=== PATIENT | female | born 1990 | race African-American/Black ===

== ENCOUNTER → 2018-05-22 | Outpatient (CLI) | payer OTHER ==
--- NOTE | 2018-05-22 18:41 | US ---
EXAMINATION TYPE: US thyroid st tissue head/neck DATE OF EXAM: 05/22/2018 COMPARISON: NONE CLINICAL HISTORY: 27-year-old female E04.9 ENLARGED THYROID. TECHNIQUE: Multiple sonographic images of the thyroid gland are obtained. FINDINGS: GLAND SIZE: Right Lobe: 4.8 x 1.8 x 2.0 cm Overall Parenchyma: mildly heterogeneous Left Lobe: 5.9 x 1.8 x 2.0 cm Overall Parenchyma: mildly heterogeneous Isthmus Thickness: 0.6 cm No nodules seen. Enlarged, lobular borders. No hyperemia. Bilateral neck scanned, no evidence of lymphadenopathy. IMPRESSION: Borderline to mild thyromegaly. There is mildly heterogeneous glandular parenchyma. No discrete nodul es. Consider goiter.
== END | disposition home or self-care (01) ==
LOC: RADUSWWP 15:35
PROVIDERS: ATTEND Obstetrics & Gynecology
DX: E01.0 Iodine-deficiency related diffuse (endemic) goiter (principal)
CPT/HCPCS: 76536

== ENCOUNTER 2018-11-14 08:58 | Outpatient (CLI) | payer OTHER ==
[2018-11-14 09:51] VITALS: RESP 18; TEMP 98.6
[2018-11-14 10:23] VITALS: PULSE 100
[2018-11-14 10:43] VITALS: BP 132/72
--- NOTE | 2018-12-04 09:19 | P.MSEPDOC ---
Presenting Problems - Arrival Data Date of Arrival on Unit: 11/14/18 Time of Arrival on Unit: 08:55 Mode of Transport: Ambulatory - Complaint OB-Reason for Admission/Chief Complaint: Possible Onset of Labor, Rule Out SROM Comment: states irreg contx for last several days and questionable leaking fluid this am. Medical History - Information : 3 Para: 1 Term: 1 : 0 Abortions: Spontaneous or Elective: 1 Number of Living Children: 1 - Gestational Age Gestational Age by MELINA (wks/days): 36 Weeks and 0 Days Review of Systems - Review of Systems Constitutional: No problems Breast: No problems ENT: No problems Cardiovascular: No problems Respiratory: No problems Gastrointestinal: No problems Genitourinary: No problems Musculoskeletal: No problems Neurological: No problems Skin: No problems Vital Signs - Temperature Temperature: 98.6 F Temperature Source: Oral - Pulse Right Brachial Pulse Rate: 100 Pulse Assessment Method: Auscultation - Respirations Respiratory Rate: 18 Oxygen Delivery Method: Room Air - Blood Pressure Right Arm Blood Pressure: 132/72 Blood Pressure Mean: 92 Blood Pressure Source: Automatic Cuff Medical Screen Scoring (Pre) - Cervical Exam Dilation: 1-3 cm = 1 Effacement: Exam Deferred Membranes: Intact - Uterine Contractions Frequency: N/A Duration: N/A Intensity: N/A - Maternal Vital Signs Maternal Temperature: N/A Maternal Blood Pressure: N/A Signs of Preeclampsia: N/A Maternal Respirations: N/A - Pain Assessment Pain Scale Used: Numeric (1 - 10) Pain Intensity: 0 - Maternal Trauma Maternal Trauma: N/A - Assessment Baseline FHR: 130 Heart Rate - NICHD Category: Category I (Normal) = 0 NST: Reactive Position: N/A Station: N/A - Total Score Total Score (Pre): 1 - Level of Risk Level of Risk: Low (0-5) Physician Notification (Pre) - Physician Notified Physician Notified Date: 11/14/18 Physician Notified Time: 10:05 Physician/Practitioner Notifed:: vincent Spoke With: vincent New Order Received: Yes - Notification Comment Comment: ok for discharge Disposition - Disposition OB Disposition: Physician follow up in office, Discharge to home Discharge Date: 11/14/18 Discharge Time: 10:23 I agree with the RN Medical Screening Exam: Yes Risk & Benefit of care provided described in d/c instruction: Yes Diagnosis: FALSE LABOR BEFORE 37 COMPLETED WEEKS OF GEST, THIRD TRI
== END 2018-11-14 10:35 | disposition home or self-care (01) ==
LOC: FBPOP 08:58
PROVIDERS: ATTEND Obstetrics & Gynecology
DX: O47.03 False labor before 37 completed weeks of gestation, third trimester (principal); Z3A.36 36 weeks gestation of pregnancy
CPT/HCPCS: 59025; G0463; 99213

== ENCOUNTER 2018-12-02 21:45 | Inpatient (IN) | payer OTHER ==
[2018-12-02] MEDS ORDERED: PENICILLIN G POTASSIUM 5,000,000 UNIT in DEXTROSE 5% IN WATER 100 ML IVPB STA ×2 (22:11)
[2018-12-02] MEDS ORDERED: LIDOCAINE 0.5% (PF) 5 MG/ML (50 ML SDV) SQ PRN (22:11)
[2018-12-02] MEDS ORDERED: METHYLERGONOVINE 0.2 MG/ML 1 ML AMP IM PRN (22:11)
[2018-12-02] MEDS ORDERED: CARBOPROST TROMETHAMINE 250 MCG/ML 1 ML AMP IM PRN (22:11)
[2018-12-02] MEDS ORDERED: OXYTOCIN 10 UNIT/ML 1 ML VIAL IM PRN (22:11)
[2018-12-02] MEDS ORDERED: TERBUTALINE 1 MG/ML VIAL SQ PRN (22:11)
[2018-12-02 22:29] VITALS: BMI 39.4
[2018-12-02] MEDS ORDERED: SODIUM CHLORIDE 0.9% 100 ML BAG ONE (22:31)
[2018-12-02] MEDS ORDERED: fentaNYL (PF) 50 MCG/ML 5 ML AMP ONE (22:31)
[2018-12-02] MEDS ORDERED: ROPIVACAINE 5MG/ML 20ML VIAL ONE (22:31)
[2018-12-02] MEDS: LACTATED RINGERS 1,000 ML IV SCH ×2 (22:45→23:11)
[2018-12-02 22:49] LABS: Basophils % (A) 0 %; Eosinophils # (A) 0.1 k/uL (0-0.7); Eosinophils % (A) 1 %; HCT 44.5 % (34.0-46.0); HGB 14.8 gm/dL (11.4-16.0); Lymphocytes # (A) 1.5 k/uL (1.0-4.8); Lymphocytes % (A) 13 %; MCH 29.3 pg (25.0-35.0); MCHC 33.2 g/dL (31.0-37.0); MCV 88.2 fL (80.0-100.0); Monocytes # (A) 0.9 k/uL (0-1.0); Monocytes % (A) 7 %; Neutrophils # (A) 9.2 k/uL (1.3-7.7); Neutrophils % (A) 77 %; Platelet Count 249 k/uL (150-450); RBC 5.04 m/uL (3.80-5.40); RDW 15.5 % (11.5-15.5); WBC 11.9 k/uL (3.8-10.6)
--- NOTE | 2018-12-03 00:42 | P.HPOB ---
History of Present Illness H&P Date: 12/03/18 Chief Complaint: 38-5/7 weeks, spontaneous rupture membranes, labor The patient is a 28-year-old 5 para 1031 admitted at 38-5/7 weeks as established by last menstrual period and confirmed by 19 week ultrasound. She is admitted for management of active labor with the documented spontaneous rupture of membranes for clear fluid. Her has been uncomplicated though she was found with the potentially macrosomic infant with growth at greater than 97th percentile in the third trimester. On labor and delivery, all signs reassuring though the heart tones at this time are category 2 with minimal short and long-term variability though there is response to scalp stimulation. There are no apparent decelerations at this time. Group B strep status is negative. Obstetrical history: 5 para 1031 with 1 previous normal vaginal delivery and 2 early interruptions of as well as a miscarriage not requiring D&C. Current statistics are listed in history of present illness. EDC of 12/12/2018 was established by last menstrual period and confirmed by second trimester ultrasound. Laboratory workup demonstrates a blood type of O+ with a negative antibody screen. Rubella status is immune. The remainder the laboratory workup was within normal limits. Early Glucola was normal, second trimester Glucola was elevated but followed by a normal three-hour glucose tolerance test. Group B strep status is negative. Gynecologic history: Unremarkable no history of any infections to include STDs. Review of Systems Review of systems is confined to history of present illness. Past Medical History Past Medical History: No Reported History History of Any Multi-Drug Resistant Organisms: None Reported Additional Past Surgical History / Comment(s): X2, Smoking Status: Never smoker - Past Family History Mother Family Medical History: No Reported History Medications and Allergies Home Medications Medication Instructions Recorded Confirmed Type Pnv,Calcium 72/Iron/Folic Acid 1 each PO DAILY 11/14/18 12/02/18 History [ Plus Tablet] Allergies Allergy/AdvReac Type Severity Reaction Status Date / Time No Known Allergies Allergy Verified 12/02/18 22:10 Exam Vital Signs Temp Pulse Resp BP 12/02/18 22:23 97.1 F L 99 20 144/80 Intake and Output 12/02/18 12/02/18 12/03/18 14:59 22:59 06:59 Intake Total 1000 Balance 1000 Intake: Intake, IV Titration 1000 Amount Lactated Ringers 1,000 ml 1000 @ 125 mls/hr IV .Q8H [facility] Rx#:[id number] Other: Weight 114.305 kg In general, this is a well-developed, moderately obese female in no acute distress. Her heart has a regular rhythm and rate without murmur. Her lungs are clear to auscultation bilaterally in all simpson. Her abdomen is obese, nondistended, has normal active bowel sounds, is soft, nontender, and without any palpable masses aside from uterine fundus. Her extremities are without any cyanosis, clubbing, or edema and are nontender to palpation bilaterally. Digital cervical examination demonstrates her cervix to be approximately 8 cm dilated, 90% effaced, with the vertex in presentation at -2 station. There is a moderate amount of caput present. Results Result Diagrams: 12/02/18 22:14 Abnormal Lab Results - Last 24 Hours (Table) 12/02/18 Range/Units 22:14 WBC 11.9 H (3.8-10.6) k/uL Neutrophils # 9.2 H (1.3-7.7) k/uL Assessment and Plan (1) Active labor at term Current Visit: Yes Status: Acute Code(s): HDW0635 - SNOMED Code(s): 39994877 (2) Spontaneous rupture of membranes Current Visit: Yes Status: Acute Code(s): RFN4728 - SNOMED Code(s): 330445322 (3) Large for gestational age fetus Current Visit: Yes Status: Acute Code(s): HMU2996 - SNOMED Code(s): 962637600 Plan: The patient is admitted for active management of labor. She will continue to have close maternal and surveillance and expectant management will be practiced. An epidural catheter is in place for analgesia. Should there be no significant cervical change or the heart rate pattern justify it, she may proceed to primary low transverse section.
[2018-12-03] MEDS ORDERED: HYDROcodone/APAP 5-325MG 1 EACH TAB PO PRN (01:22)
[2018-12-03] MEDS ORDERED: WITCH HAZEL 1 EACH MED..PAD TOPICAL PRN (01:22)
[2018-12-03] MEDS ORDERED: ACETAMINOPHEN TAB 325 MG TAB PO PRN (01:22)
[2018-12-03] MEDS ORDERED: diphenhydrAMINE 50 MG/ML 1 ML VIAL IVP PRN ×2 (01:22)
[2018-12-03] MEDS ORDERED: BENZOCAINE/MENTHOL SPRAY 1 GM/SPRAY AEROSOL TOPICAL PRN (01:22)
[2018-12-03] MEDS ORDERED: SIMETHICONE 80 MG CHEWABLE PO PRN (01:22)
[2018-12-03] MEDS ORDERED: diphenhydrAMINE 25 MG CAP PO PRN (01:22)
[2018-12-03] MEDS ORDERED: LANOLIN CREAM 5 GM TUBE TOPICAL PRN (01:22)
[2018-12-03] MEDS ORDERED: ZOLPIDEM 5 MG TAB PO PRN (01:22)
[2018-12-03] MEDS ORDERED: diphenhydrAMINE 50 MG CAP PO PRN (01:22)
[2018-12-03] MEDS ORDERED: HYDROCORTISONE 2.5% RECTAL CREAM 30 GM TUBE RECTAL PRN (01:22)
[2018-12-03] MEDS ORDERED: HYDROcodone/APAP 7.5-325MG 1 EACH TAB PO PRN (01:22)
--- NOTE | 2018-12-03 01:27 | P.PROBDLV ---
Vaginal Delivery Note - . Vaginal Delivery Note: The patient is a 28-year-old 5 para 1031 admitted at 38-5/7 weeks by good dating parameters. She is admitted with documented spontaneous rupture of membranes in early active labor with all signs reassuring. Her has been uncomplicated and group B strep status is negative. On labor and delivery, she had an epidural catheter placed for analgesia at the onset of the active phase of labor and made steady progress to the active phase. Heart tones were category 2 for the majority of the active phase of labor but no nonreassuring signs were noted. As she was making rapid progress, she was managed expectantly. She ultimately progressed fairly quickly from approximate 6 cm to complete and then pushed over the course of approximate 2-3 contractions to a normal spontaneous vaginal delivery of a viable 9 lbs. 0 oz. baby boy with Apgars of 9 at 1 minute and 9 at 5 minutes delivered in the occiput anterior position. The placenta was delivered spontaneously, intact, and grossly normal with a grossly normal, centrally inserted three-vessel cord. There were no lacerations of the perineum, vagina, or cervix. She did have a small left vulvar skin tag approximately 3-4 mm in size which she had requested be excised at the time of delivery. It was infused with 1% lidocaine and removed with a scissors and sent for pathological diagnoses. There was no significant ongoing bleeding nor did it require a stitch to close. Estimated blood loss for the entire case was approximately 200 mL. There are no complications. All sponge, instrument, and needle counts were correct. Both mother and infant are resting comfortably in recovery.
[2018-12-03] MEDS ORDERED: OXYTOCIN 20 UNITS/1000 ML NS 1,000 ML IV SCH (01:30)
[2018-12-03] MEDS ORDERED: PENICILLIN G POTASSIUM 2,500,000 UNIT in DEXTROSE 5% IN WATER 100 ML IVPB SCH ×2 (02:12)
[2018-12-03] MEDS: IBUPROFEN 600 MG TAB PO PRN ×3 (04:01→21:59)
[2018-12-03] MEDS: SENNOSIDES-DOCUSATE SODIUM 1 EACH TAB PO SCH ×3 (08:01→22:00)
--- NOTE | 2018-12-03 11:06 | P.PNOBGVD ---
Subjective - Subjective Patient reports: Reports appetite normal, Reports voiding normally, Reports pain well controlled, Reports ambulating normally : doing well, nursing well Objective - Latest Vital Signs Latest vital signs: Vital Signs Temp Pulse Resp BP 12/03/18 08:00 98.1 F 101 H 18 126/80 12/03/18 03:15 97.2 F L 99 16 110/51 12/03/18 02:45 101 H 16 117/78 12/03/18 02:15 87 16 112/55 12/03/18 02:00 91 16 111/66 12/03/18 01:45 100 16 105/55 12/03/18 01:30 100 16 120/56 12/03/18 01:15 97.5 F L 99 16 116/56 12/02/18 22:23 97.1 F L 99 20 144/80 Intake and Output 12/02/18 12/03/18 12/03/18 22:59 06:59 14:59 Intake Total 1000 Balance 1000 Intake: Intake, IV Titration 1000 Amount Lactated Ringers 1,000 ml 1000 @ 125 mls/hr IV .Q8H [facility] Rx#:[id number] Other: # Voids 1 1 Weight 114.305 kg - Exam Extremities: Present: normal Abdomen: Present: normal appearance, soft Uterus: Present: normal, firm (The uterine fundus is tonic and nontender around the umbilicus.) - Labs Labs: Abnormal Lab Results - Last 24 Hours (Table) 12/02/18 Range/Units 22:14 WBC 11.9 H (3.8-10.6) k/uL Neutrophils # 9.2 H (1.3-7.7) k/uL Assessment and Plan (1) Active labor at term Current Visit: Yes Status: Acute Code(s): [id number] - SNOMED Code(s): 54584274 (2) Spontaneous rupture of membranes Current Visit: Yes Status: Acute Code(s): PPC2718 - SNOMED Code(s): 950145478 (3) Large for gestational age fetus Current Visit: Yes Status: Acute Code(s): VBO7323 - SNOMED Code(s): 728140329 (4) Normal spontaneous vaginal delivery Current Visit: Yes Status: Acute Code(s): O80 - ENCOUNTER FOR FULL-TERM UNCOMPLICATED DELIVERY SNOMED Code(s): 11575068 Plan: Continue routine care. Anticipate discharge home tomorrow pending no complications.
[2018-12-04 01:16] VITALS: RESP 16
[2018-12-04] MEDS: SENNOSIDES-DOCUSATE SODIUM 1 EACH TAB PO SCH ×2 (07:41→20:26)
--- NOTE | 2018-12-04 08:57 | P.DS ---
Providers Date of admission: 12/02/18 21:55 Expected date of discharge: 12/04/18 Attending physician: Josy Welch Primary care physician: Josy Welch [facility] Course: This is a 28-year-old black female 5 para 1031 EDC 12/12/2018 at 38-4/7 weeks' gestation. Patient presented to labor and delivery with a history of spontaneous amniorrhexis, clear fluid. Regular uterine contractions were noted to follow. Fetus is been active throughout the . course was unremarkable, blood type O positive, rubella status immune. Please see dictated history and physical for details. Patient progressed well and delivered a liveborn male infant with scores of 9 and 9 at one and 5 minutes respectively. There were no vaginal lacerations or defects. Estimated blood loss 200 mL's. weighed 4090 g or 9 lbs. 0 oz. Please see dictated delivery note for details. This morning the patient is doing well. She is voiding, ambulating, passing flatus without difficulty. Vital signs are stable and she is afebrile. Circumcision has been performed. Breast-feeding is going well. Patient is judged to be in very good condition for discharge home. There is minimal lochia rubra, the fundus is firm and in the midline, symmetric and 18 week size. Extremities are negative for edema. Chest is clear in all simpson. Patient is being discharged home at this time in very good condition. She will follow-up in the office with me in 6 weeks. I reminded her no intercourse, tampons or douching. We have briefly discussed options for contraception and we will discuss this further in the office. She will call with any fevers shakes or chills, foul smelling or copious lochia, with the passage of large blood clots, with any pain not alleviated by [id number] Motrin products, or indeed with any difficulties or concerns. Patient Condition at Discharge: Good Plan - Discharge Summary Discharge Rx Participant: No New Discharge Prescriptions: No Action Pnv,Calcium 72/Iron/Folic Acid [ Plus Tablet] 1 each PO DAILY Discharge Medication List Pnv,Calcium 72/Iron/Folic Acid [ Plus Tablet] 1 each PO DAILY 11/14/18 [History] Follow up Appointment(s)/Referral(s): Josy Welch MD [Primary Care Provider] - 6 Weeks Discharge Disposition: HOME SELF-CARE
[2018-12-04] MEDS: IBUPROFEN 600 MG TAB PO PRN (16:21)
[2018-12-05 08:56] VITALS: BP 140/88; PULSE 102; TEMP 98.4
[2018-12-05] MEDS: SENNOSIDES-DOCUSATE SODIUM 1 EACH TAB PO SCH (10:35)
== END 2018-12-05 10:37 | disposition home or self-care (01) | DRG 807 ==
LOC: FBPOP 21:45 → 4FBP 21:55
PROVIDERS: ADMIT Obstetrics & Gynecology; ATTEND Obstetrics & Gynecology
PROC: 00HU33Z Insertion of Infusion Device into Spinal Canal, Percutaneous Approach (ICD-10-PCS; 2018-12-02)
PROC: 3E0R3BZ Introduction of Anesthetic Agent into Spinal Canal, Percutaneous Approach (ICD-10-PCS; 2018-12-02)
PROC: 10E0XZZ Delivery of Products of Conception, External Approach (ICD-10-PCS; principal; 2018-12-03)
PROC: 0HB9XZZ Excision of Perineum Skin, External Approach (ICD-10-PCS; 2018-12-03)
DX: O36.63X0 Maternal care for excessive fetal growth, third trimester, not applicable or unspecified (principal); Z37.0 Single live birth; N90.89 Other specified noninflammatory disorders of vulva and perineum; Z3A.38 38 weeks gestation of pregnancy; O99.214 Obesity complicating childbirth; E66.9 Obesity, unspecified; Z79.899 Other long term (current) drug therapy
CPT/HCPCS: 84112; 85025; 86850; 86900; 86901; 88305; 99213

== ENCOUNTER 2020-11-12 05:22 | Emergency (ER) | payer OTHER ==
--- NOTE | 2020-11-12 05:43 | ED ---
SOB HPI - General Chief Complaint: Shortness of Breath Stated Complaint: SOB, cough Source: patient, RN notes reviewed, old records reviewed Mode of arrival: ambulatory Limitations: no limitations - History of Present Illness Initial Comments: This is a 30-year-old female DF for evaluation presented today for evaluation of coronavirus exposure which is asymptomatic. Patient concern for possible spreading of disease, patient presents today for being exposed to coronavirus. She does have a little bit of a cough and chest pain. Otherwise no complaints. Patient does suffer from diabetes MD Complaint: shortness of breath, cough -: minutes(s) Severity: mild Severity scale (1-10): 3 Quality: dull Consistency: constant Improves With: nothing Worsens With: nothing Known History Of: COPD Context: recent URI, recent illness, other (Exposure to covid) Associated Symptoms: fever, cough Treatments Prior to Arrival: none - Related Data Home Medications Medication Instructions Recorded Confirmed metFORMIN HCL 500 mg PO BID 11/12/20 11/12/20 Allergies Allergy/AdvReac Type Severity Reaction Status Date / Time No Known Allergies Allergy Verified 11/12/20 05:28 Review of Systems ROS Statement: Those systems with pertinent positive or pertinent negative responses have been documented in the HPI. ROS Other: All systems not noted in ROS Statement are negative. Past Medical History Past Medical History: Diabetes Mellitus History of Any Multi-Drug Resistant Organisms: None Reported Additional Past Surgical History / Comment(s): X2, Past Psychological History: No Psychological Hx Reported Smoking Status: Never smoker Past Alcohol Use History: None Reported Past Drug Use History: Marijuana - Past Family History Mother Family Medical History: No Reported History General Exam Limitations: no limitations General appearance: alert, in no apparent distress Head exam: Present: atraumatic, normocephalic, normal inspection Eye exam: Present: normal appearance, PERRL, EOMI. Absent: scleral icterus, conjunctival injection, periorbital swelling ENT exam: Present: normal exam, mucous membranes moist Neck exam: Present: normal inspection. Absent: tenderness, meningismus, lymphadenopathy Respiratory exam: Present: normal lung sounds bilaterally. Absent: respiratory distress, wheezes, rales, rhonchi, stridor Cardiovascular Exam: Present: regular rate, normal rhythm, normal heart sounds. Absent: systolic murmur, diastolic murmur, rubs, gallop, clicks GI/Abdominal exam: Present: soft, normal bowel sounds. Absent: distended, tenderness, guarding, rebound, rigid Extremities exam: Present: normal inspection, full ROM, normal capillary refill. Absent: tenderness, pedal edema, joint swelling, calf tenderness Back exam: Present: normal inspection Neurological exam: Present: alert, oriented X3, CN II-XII intact Psychiatric exam: Present: normal affect, normal mood Skin exam: Present: warm, dry, intact, normal color. Absent: rash Course Vital Signs 11/12/20 11/12/20 11/12/20 05:25 05:54 06:52 Temperature 98.2 F 101.0 F H 99.1 F Pulse Rate 119 H 114 H 94 Respiratory 20 20 16 Rate Blood Pressure 109/71 102/65 O2 Sat by Pulse 97 97 97 Oximetry - Reevaluation(s) Reevaluation #1: 11/12/20 07:04 Medical record is reviewed Reevaluation #2: 11/12/20 07:04 Patient requesting information regarding possibility of infusion patient form she does meet qualification, she is agreeable Reevaluation #3: 11/12/20 07:05 Patient will be given bam. and then discharged Medical Decision Making - Medical Decision Making 30 female known coronavirus exposure boyfriend who feels with, patient does again herself have coronavirus given BAM here in the ER, a symptomatically throughout stay, discharged - Lab Data Lab Results 11/12/20 Range/Units 05:54 Coronavirus (PCR) Detected A (Not Detectd) - Radiology Data Radiology results: report reviewed (Chest x-rays negative for acute disease), image reviewed Disposition Clinical Impression: Coronavirus infection Disposition: HOME SELF-CARE Condition: Good Instructions (If sedation given, give patient instructions): Coronavirus Disease 2019 (COVID-19) Referrals: Ivan Villagran DO [Primary Care Provider] - 1-2 days
[2020-11-12] MEDS ORDERED: ACETAMINOPHEN TAB 325 MG TAB PO STA ×2 (05:55→11:00)
--- NOTE | 2020-11-12 07:03 | XR ---
EXAM: XR Chest, 1 View CLINICAL HISTORY: Reason: cough TECHNIQUE: Frontal view of the chest. COMPARISON: 09/26/15 FINDINGS: Lungs: Lung volumes are within normal limits. No evidence of airspace consolidation. No pulmonary edema. Pleural space: Unremarkable. No pneumothorax. Heart: Unremarkable. No cardiomegaly. Mediastinum: Unremarkable. No mediastinal widening or shift. Bones/joints: No acute osseous abnormality. IMPRESSION: No evidence of acute cardiopulmonary abnormality.
[2020-11-12] MEDS ORDERED: BAMLANIVIMAB (EUA) 700 MG, ETESEVIMAB (EUA) 1,400 MG in SODIUM CHLORIDE 0.9% 50 ML IVPB ONE (08:00)
[2020-11-12 09:11] VITALS: RESP 18
[2020-11-12 10:57] VITALS: BP 115/71; PULSE 101; TEMP 101
== END 2020-11-12 11:00 | disposition home or self-care (01) ==
LOC: EC 05:22
DX: U07.1 COVID-19 (principal); J44.9 Chronic obstructive pulmonary disease, unspecified; E11.9 Type 2 diabetes mellitus without complications; F12.90 Cannabis use, unspecified, uncomplicated
CPT/HCPCS: 87635; 71045; 99285; 96365; Q0245

== ENCOUNTER 2021-04-06 22:17 | Emergency (ER) | payer OTHER ==
[2021-04-06 22:29] VITALS: RESP 18; TEMP 98.3
[2021-04-07] MEDS ORDERED: SODIUM CHLORIDE 0.9% 500 ML 500 ML IV ONE (00:04)
[2021-04-07] MEDS ORDERED: KETOROLAC 15 MG/ML 1 ML VIAL IVP STA (00:04)
[2021-04-07] MEDS ORDERED: diphenhydrAMINE 50 MG/ML 1 ML VIAL IVP STA (00:04)
--- NOTE | 2021-04-07 00:55 | CT ---
EXAMINATION TYPE: CT brain wo con DATE OF EXAM: 04/07/2021 COMPARISON: None HISTORY: RIGHT SIDED HEADACHE. CT DLP: 1096.4 mGycm Automated exposure control for dose reduction was used. Ventricles and sulci appear normal. There is no mass effect nor midline shift. There is no sign of in tracranial hemorrhage. The calvarium is intact. There is normal aeration of the mastoid sinuses. IMPRESSION: Negative CT scan of the brain.
--- NOTE | 2021-04-07 01:23 | ED ---
Headache HPI - General Chief Complaint: Headache Stated Complaint: migraine Time Seen by Provider: 04/06/21 23:56 Source: RN notes reviewed Mode of arrival: ambulatory Limitations: no limitations - History of Present Illness Initial Comments: This a 30-year-old female presents emergency Department chief complaint of headache. Patient states she's had a headache for over 3 days. Patient states primarily right sided sometimes it does wax and wane but never completely resolves. Patient denies any fevers chills neck pain or neck stiffness. Patient states that she's never had a headache with this was not a sudden onset of headache either. Patient denies any sick contacts no visual disturbances no focal weakness. - Related Data Home Medications Medication Instructions Recorded Confirmed metFORMIN HCL 500 mg PO BID 11/12/20 11/12/20 Allergies Allergy/AdvReac Type Severity Reaction Status Date / Time No Known Allergies Allergy Verified 04/06/21 22:26 Review of Systems ROS Statement: Those systems with pertinent positive or pertinent negative responses have been documented in the HPI. ROS Other: All systems not noted in ROS Statement are negative. Past Medical History Past Medical History: Diabetes Mellitus History of Any Multi-Drug Resistant Organisms: None Reported Additional Past Surgical History / Comment(s): X2, Past Psychological History: No Psychological Hx Reported Smoking Status: Never smoker Past Alcohol Use History: None Reported Past Drug Use History: Marijuana - Past Family History Mother Family Medical History: No Reported History General Exam Limitations: no limitations General appearance: alert, in no apparent distress Head exam: Present: atraumatic, normocephalic, normal inspection Eye exam: Present: normal appearance, PERRL, EOMI. Absent: scleral icterus, conjunctival injection, periorbital swelling ENT exam: Present: normal exam, normal oropharynx, mucous membranes moist, TM's normal bilaterally Neck exam: Present: normal inspection, full ROM. Absent: tenderness, meningismus, lymphadenopathy Respiratory exam: Present: normal lung sounds bilaterally. Absent: respiratory distress, wheezes, rales, rhonchi, stridor Cardiovascular Exam: Present: regular rate, normal rhythm, normal heart sounds. Absent: systolic murmur, diastolic murmur, rubs, gallop, clicks Neurological exam: Present: alert, oriented X3, CN II-XII intact, reflexes normal, other (Finger to nose intact bilaterally). Absent: motor sensory deficit Course Vital Signs 04/06/21 22:26 Temperature 98.3 F Pulse Rate 72 Respiratory 18 Rate Blood Pressure 115/73 O2 Sat by Pulse 98 Oximetry Medical Decision Making - Medical Decision Making CT was unremarkable. Patient's was cleaned time. Patient feels greatly improved after migraine cocktail. Patient feels comfortable discharged in stable condition. Disposition Clinical Impression: Migraine headache Disposition: HOME SELF-CARE Condition: Stable Instructions (If sedation given, give patient instructions): Acute Headache (ED) Additional Instructions: Please return to the Emergency Department if symptoms worsen or any other concerns. Is patient prescribed a controlled substance at d/c from ED?: No Referrals: Ivan Villagran DO [Primary Care Provider] - 1-2 days Time of Disposition: 01:23
[2021-04-07 01:48] VITALS: BP 124/68; PULSE 82
== END 2021-04-07 01:40 | disposition home or self-care (01) ==
LOC: EC 22:17
DX: G43.909 Migraine, unspecified, not intractable, without status migrainosus (principal); E11.9 Type 2 diabetes mellitus without complications; F12.90 Cannabis use, unspecified, uncomplicated; Z79.84 Long term (current) use of oral hypoglycemic drugs
CPT/HCPCS: 70450; 96374; 96375 ×2; 99284; J1200; J1885; J1790

== ENCOUNTER → 2021-07-24 | Outpatient (CLI) | payer OTHER ==
--- NOTE | 2021-07-24 16:19 | US ---
EXAMINATION TYPE: US thyroid st tissue head/neck DATE OF EXAM: 07/24/2021 COMPARISON: Thyroid ultrasound May 22, 2018 CLINICAL HISTORY: E04.9 Nontoxic goiter. f/u GLAND SIZE: Right Lobe: 5.1 x 1.7 x 2.0 cm Overall Parenchyma: heterogenous Left Lobe: 5.6 x 1.7 x 1.8 cm Overall Parenchyma: heterogeneous Isthmus Thickness: 0.6 cm NODULES RIGHT: # of nodules measured on right: 0 LEFT: # of nodules measured on left: 0 ISTHMUS: # of nodules measured in the isthmus: 0 Bilateral neck scanned, no evidence of lymphadenopathy. Heterogeneous thyroid gland measuring upper limits of normal in size without discrete nodules. No sig nificant change from prior. IMPRESSION: As above. No significant change from prior study.
== END | disposition home or self-care (01) ==
LOC: RADUSWWP 15:36
PROVIDERS: ATTEND Family Medicine
DX: E04.9 Nontoxic goiter, unspecified (principal)
CPT/HCPCS: 76536

== ENCOUNTER → 2022-10-25 | Outpatient (CLI) | payer OTHER ==
--- NOTE | 2022-10-25 14:04 | XR ---
EXAMINATION TYPE: XR knee 4V RT DATE OF EXAM: 10/25/2022 CLINICAL HISTORY: Pain. TECHNIQUE: Three views of the right knee are obtained, for sunrise view. COMPARISON: None. FINDINGS: There is no acute fracture/dislocation evident in right knee. Patellar articulation satisf actory on the sunrise view. Mild narrowing patellofemoral compartment. There is tiny osteophyte ante rior superior patella at the distal quadriceps tendon attachment. Mild overlying subcutaneous edema. IMPRESSION: As above.
== END | disposition home or self-care (01) ==
LOC: RADXRMAIN 13:35
PROVIDERS: ATTEND Nurse Practitioner Family
DX: M25.861 Other specified joint disorders, right knee (principal); M25.761 Osteophyte, right knee

== ENCOUNTER 2022-11-21 22:15 | Emergency (ER) | payer OTHER ==
[2022-11-21 22:22] VITALS: BP 126/85; TEMP 98.4
[2022-11-21] MEDS ORDERED: SODIUM CHLORIDE 0.9% 1,000 ML IV ONE (22:35)
[2022-11-21] MEDS ORDERED: KETOROLAC 15 MG/ML 1 ML VIAL IVP STA (22:35)
--- NOTE | 2022-11-21 22:45 | ED ---
General Adult HPI - General Chief complaint: Nausea/Vomiting/Diarrhea Stated complaint: Vomitting,Chills,Body Pain Time Seen by Provider: 11/21/22 22:25 Source: patient Mode of arrival: ambulatory Limitations: no limitations - History of Present Illness Initial comments: This 32-year-old female with no past medical history presents emergency depart ment for nausea, vomiting and diarrhea. The patient stated that she woke up this morning at 11 AM with these symptoms and they have been consistent all day. The patient reported that she is unable to tolerate by mouth and stated that every time she does she either vomits or has diarrhea. The patient denied any recent sick contacts. The patient stated that because the symptoms were persistent she came to the emergency department for evaluation. The patient denied any fevers or chills but did report minor body aches. The patient was however resting in bed comfortably on my evaluation. - Related Data Home Medications Medication Instructions Recorded Confirmed metFORMIN HCL 500 mg PO BID 11/12/20 11/12/20 Previous Rx's Medication Instructions Recorded Ondansetron Odt [Zofran Odt] 4 mg PO Q8HR PRN #20 tab 11/21/22 Allergies Allergy/AdvReac Type Severity Reaction Status Date / Time No Known Allergies Allergy Verified 04/06/21 22:26 Review of Systems ROS Statement: Those systems with pertinent positive or pertinent negative responses have been documented in the HPI. ROS Other: All systems not noted in ROS Statement are negative. Past Medical History Past Medical History: Diabetes Mellitus History of Any Multi-Drug Resistant Organisms: None Reported Additional Past Surgical History / Comment(s): X2, Past Psychological History: No Psychological Hx Reported Smoking Status: Never smoker Past Alcohol Use History: Rare Past Drug Use History: Marijuana - Past Family History Mother Family Medical History: No Reported History General Exam Limitations: no limitations General appearance: alert, in no apparent distress Head exam: Present: atraumatic, normocephalic, normal inspection Eye exam: Present: normal appearance, PERRL Pupils: Present: normal accommodation ENT exam: Present: normal exam, normal oropharynx, mucous membranes moist Neck exam: Present: normal inspection, full ROM Respiratory exam: Present: normal lung sounds bilaterally Cardiovascular Exam: Present: regular rate, normal rhythm, normal heart sounds GI/Abdominal exam: Present: soft, normal bowel sounds Extremities exam: Present: normal inspection, full ROM Back exam: Present: normal inspection, full ROM Neurological exam: Present: alert, oriented X3, CN II-XII intact Psychiatric exam: Present: normal affect, normal mood Skin exam: Present: warm, dry Course Vital Signs 11/21/22 22:17 Temperature 98.4 F Pulse Rate 112 H Respiratory 18 Rate Blood Pressure 126/85 O2 Sat by Pulse 98 Oximetry Medical Decision Making - Medical Decision Making Was pt. sent in by a medical professional or institution ([facility], [facility], urgent care, hospital, or [facility]...) When possible be specific @ -No Did you speak to anyone other than the patient for history (EMS, parent, family, police, friend...)? What history was obtained from this source @ -No Did you review nursing and triage notes (agree or disagree)? Why? @ -I reviewed and agree with nursing and triage notes Were old charts reviewed (outside hosp., previous admission, EMS record, old EKG, old radiological studies, urgent care reports/EKG's, [facility] records)? Report findings @ -No old charts were reviewed Differential Diagnosis (chest pain, altered mental status, abdominal pain women, abdominal pain men, vaginal bleeding, weakness, fever, dyspnea, syncope, headache, dizziness, GI bleed, back pain, seizure, CVA, palpatations, mental health)? @ -Acute gastroenteritis, dehydration, electrolyte abnormality EKG interpreted by me (3pts min.). @ -None X-rays interpreted by me (1pt min.). @ -None done CT interpreted by me (1pt min.). @ -None done U/S interpreted by me (1pt. min.). @ -None done What testing was considered but not performed or refused? (CT, X-rays, U/S, labs)? Why? @ -None What meds were considered but not given or refused? Why? @ -None Did you discuss the management of the patient with other professionals (professionals i.e. [facility], [facility], lab, RT, psych nurse, social media intern, physician practice coordinator, teacher, defence force senior officer, case planner)? Give summary @ -No Was smoking cessation discussed for >3mins.? @ -No Was critical care preformed (if so, how long)? @ -No Were there social determinants of health that impacted care today? How? (Homelessness, low income, unemployed, alcoholism, drug addiction, transportation, low edu. Level, literacy, decrease access to med. care, residential, rehab)? @ -No Was there de-escalation of care discussed even if they declined (Discuss DNR or withdrawal of care, Hospice)? DNR status @ -No What co-morbidities impacted this encounter? (DM, HTN, Smoking, COPD, CAD, Cancer, CVA, ARF, Chemo, Hep., AIDS, mental health diagnosis, sleep apnea, morbid obesity)? @ -None Was patient admitted / discharged? Hospital course, mention meds given and route, prescriptions, significant lab abnormalities, going to OR and other pertinent info. @ -The patient was seen and evaluated emergency department. Physical exam, the patient was resting in bed without any acute distress. Vital signs admission were stable. Laboratory workup was obtained and were within normal limits and the patient had 1 L of normal saline fluid as well as 30 mg of Toradol. On reevaluation, the patient stated that her symptoms were completely resolved and she was stable for discharge home. The patient likely had gastroenteritis as a cause of her symptoms and was given a prescription for Zofran to be taken at home. The patient was advised to hydrate at home and to continue to monitor symptoms. The patient was told to report back to emergency department if her pain or symptoms became acutely worse. The patient was agreeable to this and was discharged home in stable condition. Undiagnosed new problem with uncertain prognosis? @ -No Drug Therapy requiring intensive monitoring for toxicity (Heparin, Nitro, Insulin, Cardizem)? @ -No Were any procedures done? @ -No Diagnosis/symptom? @ -Gastroenteritis Acute, or Chronic, or Acute on Chronic? @ -Acute Uncomplicated (without systemic symptoms) or Complicated (systemic symptoms)? @ -Uncomplicated Side effects of treatment? @ -No Exacerbation, Progression, or Severe Exacerbation? @ -No Poses a threat to life or bodily function? How? (Chest pain, [place], [place], pneumonia, PE, COPD, DKA, ARF, appy, cholecystitis, CVA, Diverticulitis, Homicidal, Suicidal, threat to staff... and all critical care pts) @ -No - Lab Data Result diagrams: 11/21/22 23:24 11/21/22 23:24 Lab Results 04/16/23 04/16/23 04/16/23 Range/Units 23:24 23:24 23:24 WBC 8.3 (3.8-10.6) k/uL RBC 5.05 (3.80-5.40) m/uL Hgb 15.5 (11.4-16.0) gm/dL Hct 44.8 (34.0-46.0) % MCV 88.8 (80.0-100.0) fL MCH 30.7 (25.0-35.0) pg MCHC 34.6 (31.0-37.0) g/dL RDW 13.3 (11.5-15.5) % Plt Count 201 (150-450) k/uL MPV 7.3 Neutrophils % 90 % Lymphocytes % 5 % Monocytes % 4 % Eosinophils % 1 % Basophils % 0 % Neutrophils # 7.5 (1.3-7.7) k/uL Lymphocytes # 0.4 L (1.0-4.8) k/uL Monocytes # 0.3 (0-1.0) k/uL Eosinophils # 0.1 (0-0.7) k/uL Basophils # 0.0 (0-0.2) k/uL Sodium (137-145) mmol/L Potassium (3.5-5.1) mmol/L Chloride (98-107) mmol/L Carbon Dioxide (22-30) mmol/L Anion Gap mmol/L BUN (7-17) mg/dL Creatinine (0.52-1.04) mg/dL Est GFR (CKD-EPI)AfAm (>60 ml/min/1.73 sqM) Est GFR (CKD-EPI)NonAf (>60 ml/min/1.73 sqM) Glucose (74-99) mg/dL Calcium (8.4-10.2) mg/dL Magnesium (1.6-2.3) mg/dL Total Bilirubin (0.2-1.3) mg/dL AST (14-36) U/L ALT (4-34) U/L Alkaline Phosphatase (38-126) U/L Total Protein (6.3-8.2) g/dL Albumin (3.5-5.0) g/dL Lipase (23-300) U/L Urine Color Yellow Urine Appearance Clear (Clear) Urine pH 6.5 (5.0-8.0) Ur Specific [place] 1.032 (1.001-1.035) Urine Protein Trace H (Negative) Urine Glucose (UA) Negative (Negative) Urine Ketones Negative (Negative) Urine Blood Negative (Negative) Urine Nitrite Negative (Negative) Urine Bilirubin Negative (Negative) Urine Urobilinogen <2.0 (<2.0) mg/dL Ur Leukocyte Esterase Negative (Negative) Urine HCG, Qual Not Detected (Not Detectd) 11/21/22 Range/Units 23:24 WBC (3.8-10.6) k/uL RBC (3.80-5.40) m/uL Hgb (11.4-16.0) gm/dL Hct (34.0-46.0) % MCV (80.0-100.0) fL MCH (25.0-35.0) pg MCHC (31.0-37.0) g/dL RDW (11.5-15.5) % Plt Count (150-450) k/uL MPV Neutrophils % % Lymphocytes % % Monocytes % % Eosinophils % % Basophils % % Neutrophils # (1.3-7.7) k/uL Lymphocytes # (1.0-4.8) k/uL Monocytes # (0-1.0) k/uL Eosinophils # (0-0.7) k/uL Basophils # (0-0.2) k/uL Sodium 137 (137-145) mmol/L Potassium 4.1 (3.5-5.1) mmol/L Chloride 106 (98-107) mmol/L Carbon Dioxide 24 (22-30) mmol/L Anion Gap 7 mmol/L BUN 9 (7-17) mg/dL Creatinine 0.53 (0.52-1.04) mg/dL Est GFR (CKD-EPI)AfAm >90 (>60 ml/min/1.73 sqM) Est GFR (CKD-EPI)NonAf >90 (>60 ml/min/1.73 sqM) Glucose 77 (74-99) mg/dL Calcium 9.1 (8.4-10.2) mg/dL Magnesium 1.9 (1.6-2.3) mg/dL Total Bilirubin 0.5 (0.2-1.3) mg/dL AST 23 (14-36) U/L ALT 41 H (4-34) U/L Alkaline Phosphatase 71 (38-126) U/L Total Protein 7.8 (6.3-8.2) g/dL Albumin 4.5 (3.5-5.0) g/dL Lipase 57 (23-300) U/L Urine Color Urine Appearance (Clear) Urine pH (5.0-8.0) Ur Specific [place] (1.001-1.035) Urine Protein (Negative) Urine Glucose (UA) (Negative) Urine Ketones (Negative) Urine Blood (Negative) Urine Nitrite (Negative) Urine Bilirubin (Negative) Urine Urobilinogen (<2.0) mg/dL Ur Leukocyte Esterase (Negative) Urine HCG, Qual (Not Detectd) Disposition Clinical Impression: Gastroenteritis Disposition: HOME SELF-CARE Condition: Stable Instructions (If sedation given, give patient instructions): Gastroenteritis (DC), Acute Nausea and Vomiting (ED), Acute Diarrhea (ED) Prescriptions: Ondansetron Odt [Zofran Odt] 4 mg PO Q8HR PRN #20 tab PRN Reason: Nausea Is patient prescribed a controlled substance at d/c from ED?: No Referrals: Ivan Villagran DO [Primary Care Provider] - 1-2 days Time of Disposition: 23:50
[2022-11-21 23:35] LABS: Basophils % (A) 0 %; Eosinophils # (A) 0.1 k/uL (0-0.7); Eosinophils % (A) 1 %; HCT 44.8 % (34.0-46.0); HGB 15.5 gm/dL (11.4-16.0); Lymphocytes # (A) 0.4 k/uL (1.0-4.8); Lymphocytes % (A) 5 %; MCH 30.7 pg (25.0-35.0); MCHC 34.6 g/dL (31.0-37.0); MCV 88.8 fL (80.0-100.0); Mean Platelet Volume 7.3; Monocytes # (A) 0.3 k/uL (0-1.0); Monocytes % (A) 4 %; Neutrophils # (A) 7.5 k/uL (1.3-7.7); Neutrophils % (A) 90 %; Platelet Count 201 k/uL (150-450); RBC 5.05 m/uL (3.80-5.40); RDW 13.3 % (11.5-15.5); WBC 8.3 k/uL (3.8-10.6)
[2022-11-21 23:36] LABS: Appearance,Urine Clear (Clear); Bilirubin,Urine Negative (Negative); Blood,Urine Negative (Negative); Color,Urine Yellow; Glucose,Urine (UA) Negative (Negative); Ketones,Urine Negative (Negative); Leukocyte Esterase,Urine Negative (Negative); Nitrite,Urine Negative (Negative); PH, Urine 6.5 (5.0-8.0); Protein,Urine Trace (Negative); Specific Gravity,Urine 1.032 (1.001-1.035); Urobilinogen,Urine <2.0 mg/dL (<2.0)
[2022-11-21 23:49] LABS: ALT 41 U/L (4-34); AST 23 U/L (14-36); African American GFR (CKD) >90 (>60 ml/min/1.73 sqM); Albumin 4.5 g/dL (3.5-5.0); Alkaline Phosphatase 71 U/L (38-126); Anion Gap 7 mmol/L; Blood Urea Nitrogen 9 mg/dL (7-17); Calcium 9.1 mg/dL (8.4-10.2); Carbon Dioxide 24 mmol/L (22-30); Chloride 106 mmol/L (98-107); Glucose 77 mg/dL (74-99); Lipase 57 U/L (23-300); Magnesium 1.9 mg/dL (1.6-2.3); Non-African American GFR(CKD) >90 (>60 ml/min/1.73 sqM); Potassium 4.1 mmol/L (3.5-5.1); Sodium 137 mmol/L (137-145); Total Bilirubin 0.5 mg/dL (0.2-1.3); Total Protein 7.8 g/dL (6.3-8.2)
[2022-11-22 00:26] VITALS: PULSE 97; RESP 20
== END 2022-11-22 00:27 | disposition home or self-care (01) ==
LOC: EC 22:15
DX: K52.9 Noninfective gastroenteritis and colitis, unspecified (principal); E11.9 Type 2 diabetes mellitus without complications; F12.90 Cannabis use, unspecified, uncomplicated; Z79.84 Long term (current) use of oral hypoglycemic drugs
CPT/HCPCS: 36415; 80053; 83690; 83735; 85025; 81003; 81025; 99284; 96374; J1885